=== PATIENT | male | born 1940 | race Caucasian/White ===

== ENCOUNTER 2018-11-03 14:09 | Emergency (ER) | payer MEDICARE, OTHER ==
--- NOTE | 2018-11-03 14:45 | ER Document Report ---
ED Medical Screen (RME) - General Chief Complaint: Near Syncope Stated Complaint: DIZZY, BLOOD SUGAR ISSUES Time Seen by Provider: 11/03/18 14:42 Primary Care Provider: BENJAMIN PETERS FNP [Primary Care Provider] - Follow up as needed Mode of Arrival: Wheelchair Information source: Patient, Relative Notes: 77-year-old male presented to ED for complaint of dizziness with near syncopal episode a couple times today. He states he has a history of diabetes type 2 and when he was dizzy and near syncopal his blood sugar was 176 he also has a history of blood pressure and cholesterol takes a half blood pressure medicine as and his metformin is the only medicines he takes. He is alert oriented respirations regular and unlabored speaking in full sentences states he is still a little dizzy. He does have a pulse of 65 at this time. Surgical history is inguinal hernia and hemorrhoid surgery. He is a former smoker but no longer smokes does not drink or do any drugs and lives with his family. I have greeted and performed a rapid initial assessment of this patient. A comprehensive ED assessment and evaluation of the patient, analysis of test results and completion of medical decision making process will be conducted by an additional ED providers. Dictation of this chart was performed using voice recognition software; therefore, there may be some unintended grammatical errors. TRAVEL OUTSIDE OF THE [place] IN LAST 30 DAYS: No - Related Data Allergies/Adverse Reactions: No Known Allergies Allergy (Verified 11/03/18 14:10) Past Medical History - Past Medical History Cardiac Medical History: Reports: Hx Hypercholesterolemia, Hx Hypertension Endocrine Medical History: Reports: Hx Diabetes Mellitus Type 2 Renal/ Medical History: Denies: Hx Peritoneal Dialysis Physical Exam - Vital signs Vitals: Temp Pulse Resp BP Pulse Ox 97.7 F 63 18 172/65 H 96 11/03/18 14:11 11/03/18 14:11 11/03/18 14:11 11/03/18 14:11 11/03/18 14:11 Course - Vital Signs Vital signs: Temp Pulse Resp BP Pulse Ox 97.7 F 63 18 172/65 H 96 11/03/18 14:11 11/03/18 14:11 11/03/18 14:11 11/03/18 14:11 11/03/18 14:11 Doctor's Discharge - Discharge Referrals: BENJAMIN PETERS, NURSING TEACHER [Primary Care Provider] - Follow up as needed
--- NOTE | 2018-11-03 15:02 | RADIOLOGY REPORT (SQ) ---
EXAM DESCRIPTION: CHEST 2 VIEWS COMPLETED DATE/TIME: 11/03/2018 2:53 pm REASON FOR STUDY: near syncope COMPARISON: Two-view chest 03/01/2010 EXAM PARAMETERS: NUMBER OF VIEWS: two views TECHNIQUE: Digital Frontal and Lateral radiographic views of the chest acquired. RADIATION DOSE: NA LIMITATIONS: none FINDINGS: LUNGS AND PLEURA: No opacities, masses or pneumothorax. No pleural effusion. MEDIASTINUM AND HILAR STRUCTURES: No masses or contour abnormalities. HEART AND VASCULAR STRUCTURES: Heart normal size. No evidence for failure. BONES: No acute findings. HARDWARE: None in the chest. OTHER: No other significant finding. IMPRESSION: NO ACUTE RADIOGRAPHIC FINDING IN THE CHEST. TECHNICAL DOCUMENTATION: JOB ID: [id number] [employer]- All Rights Reserved Reading location - IP/workstation name: [email or web address]
[2018-11-03 15:32] LABS: ABSOLUTE BASOPHILS # (AUTO) 0.1 10^3/uL (0.0-0.2); ABSOLUTE EOSINOPHILS # (AUTO) 0.5 10^3/uL (0.0-0.6); ABSOLUTE MONOCYTES (AUTO) 0.6 10^3/uL (0.1-1.4); BASOPHILS % (AUTO) 1.3 % (0-2); EOSINOPHILS % (AUTO) 6.1 % (0-6); HEMATOCRIT 41.1 % (37.9-51.0); HEMOGLOBIN 14.3 g/dL (13.5-17.0); LYMPHOCYTES % (AUTO) 36.6 % (13-45); MEAN CORPUSCULAR HEMOGLOBIN 31.1 pg (27.0-33.4); MEAN CORPUSCULAR HGB CONC 34.9 g/dL (32.0-36.0); MEAN CORPUSCULAR VOLUME 89 fl (80-97); MONOCYTES % (AUTO) 7.2 % (3-13); PLATELET COUNT 158 10^3/uL (150-450); RED BLOOD COUNT 4.61 10^6/uL (4.35-5.55); RED CELL DISTRIBUTION WIDTH 13.3 % (11.5-14.0); SEGMENTED NEUTROPHILS % (AUTO) 48.8 % (42-78); TOTAL CELLS COUNTED % (AUTO) 100 %; WHITE BLOOD COUNT 8.2 10^3/uL (4.0-10.5)
[2018-11-03 15:51] LABS: ALANINE AMINOTRANSFERASE 27 U/L (21-72); ALKALINE PHOSPHATASE 61 U/L (38-126); ANION GAP 8 (5-19); ASPARTATE AMINO TRANSFERASE 28 U/L (17-59); BILIRUBIN,DIRECT 0.1 mg/dL (0.0-0.4); BILIRUBIN,TOTAL 0.6 mg/dL (0.2-1.3); BLOOD UREA NITROGEN 12 mg/dL (7-20); CALCIUM 10.2 mg/dL (8.4-10.2); CARBON DIOXIDE 28 mmol/L (22-30); CHLORIDE 105 mmol/L (98-107); GLUCOSE 84 mg/dL (75-110); LIPASE 122.7 U/L (23-300); POTASSIUM 4.2 mmol/L (3.6-5.0); SODIUM 140.8 mmol/L (137-145)
[2018-11-03 16:01] LABS: CREATINE KINASE MB 3.16 ng/mL (<4.55)
[2018-11-03 16:04] LABS: TROPONIN I < 0.012 ng/mL
--- NOTE | 2018-11-03 17:30 | EKG REPORT ---
SEVERITY:- NORMAL ECG - SINUS RHYTHM : Confirmed by: Caden Holley MD 03-Nov-2018 17:30:13
[2018-11-03 17:50] LABS: APPEARANCE,URINE CLEAR; BILIRUBIN,URINE NEGATIVE (NEGATIVE); COLOR,URINE YELLOW; GLUCOSE, URINE NEGATIVE (NEGATIVE); KETONES,URINE NEGATIVE (NEGATIVE); LEUKOCYTE ESTERASE,URINE NEGATIVE (NEGATIVE); NITRITE,URINE NEGATIVE (NEGATIVE); PROTEIN,URINE NEGATIVE (NEGATIVE); URINE SPECIFIC GRAVITY 1.006; UROBILINOGEN,URINE NEGATIVE mg/dL (<2.0)
--- NOTE | 2018-11-03 20:07 | ER Document Report ---
ED General - General Chief Complaint: Near Syncope Stated Complaint: DIZZY, BLOOD SUGAR ISSUES Time Seen by Provider: 11/03/18 14:42 Primary Care Provider: BENJAMIN PETERS FNP [Primary Care Provider] - Follow up as needed Mode of Arrival: Wheelchair TRAVEL OUTSIDE OF THE [place] IN LAST 30 DAYS: No - HPI Notes: Patient presents to the emergency department for evaluation of a near syncopal episode. He actually 2 of them today. He was sitting in his recliner, got up, and felt very dizzy. He states he felt unsteady. This lasted about 10 minutes. He had another episode when he walked in to see his and help her unload groceries. Again he had been sitting with his legs up. He denies any recent medication changes. He denies any difficulty seeing, speaking, swallowing. Moving his arms and legs without difficulty. - Related Data Allergies/Adverse Reactions: No Known Allergies Allergy (Verified 11/03/18 14:10) Past Medical History - General Information source: Patient, Relative - Social History Smoking Status: Former Smoker Family History: Reviewed & Not Pertinent Patient has suicidal ideation: No Patient has homicidal ideation: No - Past Medical History Cardiac Medical History: Reports: Hx Hypercholesterolemia, Hx Hypertension Endocrine Medical History: Reports: Hx Diabetes Mellitus Type 2 Renal/ Medical History: Denies: Hx Peritoneal Dialysis Review of Systems - Review of Systems Constitutional: No symptoms reported EENT: No symptoms reported Cardiovascular: No symptoms reported Respiratory: No symptoms reported Gastrointestinal: No symptoms reported Genitourinary: No symptoms reported Musculoskeletal: No symptoms reported Skin: No symptoms reported Neurological/Psychological: No symptoms reported Physical Exam - Vital signs Vitals: Temp Pulse Resp BP Pulse Ox 97.7 F 63 18 172/65 H 96 11/03/18 14:11 11/03/18 14:11 11/03/18 14:11 11/03/18 14:11 11/03/18 14:11 - Notes Notes: Vital signs reviewed, please refer to chart. Head is normocephalic, atraumatic. Pupils equal round, reactive to light. Neck is supple without meningismus. Heart is regular rate and rhythm. Lungs are clear to auscultation bilaterally. Abdomen is soft, nontender, normoactive bowel sounds throughout. Extremities without cyanosis, clubbing. Posterior calves are nontender. Peripheral pulses are equal. Skin is warm and dry. Patient is awake, alert, oriented x3. Cranial nerves II - XII are grossly intact without focal neurological deficits. Strength is plus 5 out of 5 bilateral lower extremities. Sensation is intact. Reflexes symmetrical. Intact [id number], rapid alternating movements, [id number]. Course - Re-evaluation Re-evalutation: 11/03/18 20:21 Patient presents emergency department for evaluation of nursing episodes. He had laboratory investigations and EKG is ordered through triage. Upon my examination, orthostatics were added. These were negative as well. Patient does have some symptoms with change in movement. Otherwise his neurological and physical exams are entirely unremarkable. His blood pressure is moderately elevated, and he is told to keep an eye on this as well. I discussed positional changes, autonomic reasons for the patient to be having the symptoms. I explained to him that he should change positions slowly, especially from a reclining position. He voiced understanding to this. I told him he should follow-up with his primary care physician this week. He may indeed require further testing, but given his current lack of symptoms and unremarkable work-up here, I believe these can be done as an outpatient. Certainly if he develops vision changes, difficulty speaking or swallowing, or any other new concerning symptoms, he needs to return to the emergency department for reevaluation. He voiced understanding was discharged - Vital Signs Vital signs: Temp Pulse Resp BP Pulse Ox 97.7 F 64 18 152/74 H 96 11/03/18 14:11 11/03/18 19:39 11/03/18 14:11 11/03/18 19:39 11/03/18 14:11 - Laboratory Result Diagrams: 11/03/18 15:08 11/03/18 15:08 Laboratory results interpreted by me: 11/03/18 15:08 Eosinophils % 6.1 H - EKG Interpretation by Me Additional EKG results interpreted by me: 11/03/18 20:22 Sinus mechanism with a rate of 66 bpm. Normal axis and intervals, no acute ST changes concerning for ischemia or infarction. Discharge - Discharge Clinical Impression: Near syncope Condition: Stable Disposition: HOME, SELF-CARE Instructions: Near Syncopal Episode ([facility]) Additional Instructions: Continue your home medications as prescribed. When rising from a reclining position, get up slowly as instructed. Follow-up with your doctor next week. Continue to check your blood pressure at home. If it remains elevated, discussed this with your primary care physician. Follow-up with your doctor this week. Return to the emergency department with worsening or new concerning symptoms. Referrals: BENJAMIN PETERS FNP [Primary Care Provider] - Follow up as needed
[2018-11-03 20:36] VITALS: BP 179/83
== END 2018-11-03 20:36 | disposition home or self-care (01) ==
LOC: ER 14:09
DX: R42 Dizziness and giddiness (principal); Z87.891 Personal history of nicotine dependence; I10 Essential (primary) hypertension; E11.9 Type 2 diabetes mellitus without complications
CPT/HCPCS: 36415; 71046; 80053; 81001; 82553; 83690; 84484; 85025; 93005; 93010; 99284